=== PATIENT | female | born 1980 | race Caucasian/White ===

== ENCOUNTER → 2024-05-08 14:20 | Outpatient (REF) | payer SELFPAY | LOC: HWRAD 14:20 | DX: E04.9 Nontoxic goiter, unspecified (principal) | CPT/HCPCS: 76536 ==

== ENCOUNTER → 2024-07-03 08:02 | Outpatient (REF) | payer SELFPAY ==
[2024-07-03 10:09] LABS: HDL Cholesterol 82 mg/dl; LDL Cholesterol, Calculated 204 mg/dl; Total Cholesterol 305 mg/dl (50-199); Triglyceride 96 mg/dl (10-149); Very Low Density Lipoprotein 19 mg/dl (0-30)
[2024-07-03 10:18] LABS: Free T4 0.41 ng/dl (0.78-2.19)
[2024-07-03 11:02] LABS: Glycohemoglobin (HgbA1c) 5.7 % (4.0-5.6)
[2024-07-04 22:16] LABS: Thyroid Peroxidase Ab (TPO) 121.8 IU/mL (0.0-9.0)
== END ==
LOC: HWLAB 08:02
PROVIDERS: FAMILY PHYSICIAN Internal Medicine
DX: E05.90 Thyrotoxicosis, unspecified without thyrotoxic crisis or storm (principal)
CPT/HCPCS: 36415; 80061; 83036; 84439; 84443; 86376

== ENCOUNTER → 2024-08-31 08:48 | Outpatient (REF) | payer SELFPAY ==
[2024-08-31 11:29] LABS: HDL Cholesterol 62 mg/dl; LDL Cholesterol, Calculated 122 mg/dl; Total Cholesterol 216 mg/dl (50-199); Triglyceride 162 mg/dl (10-149); Very Low Density Lipoprotein 32 mg/dl (0-30)
[2024-08-31 11:38] LABS: Free T4 1.26 ng/dl (0.78-2.19)
[2024-08-31 11:52] LABS: TSH 1.81 uIU/ml (0.47-4.68)
== END ==
LOC: HWLAB 08:48
PROVIDERS: ATTENDING PHYSICIAN Internal Medicine Endocrinology, Diabetes & Metabolism; FAMILY PHYSICIAN Internal Medicine
DX: E03.9 Hypothyroidism, unspecified (principal)
CPT/HCPCS: 36415; 80061; 84439; 84443

== ENCOUNTER → 2024-09-28 07:47 | Outpatient (REF) | payer OTHER, SELFPAY ==
[2024-09-28 10:11] LABS: Prolactin 54.4 ng/ml (3.0-18.6)
== END ==
LOC: HWLAB 07:47
PROVIDERS: FAMILY PHYSICIAN Internal Medicine
DX: R79.89 Other specified abnormal findings of blood chemistry (principal)
CPT/HCPCS: 36415; 84146

== ENCOUNTER → 2025-01-21 08:25 | Outpatient (REF) | payer OTHER, SELFPAY ==
[2025-01-21 10:35] LABS: Free T4 1.16 ng/dl (0.78-2.19)
[2025-01-21 10:49] LABS: TSH 2.77 uIU/ml (0.47-4.68)
[2025-01-21 10:50] LABS: HDL Cholesterol 66 mg/dl; LDL Cholesterol, Calculated 135 mg/dl; Total Cholesterol 227 mg/dl (50-199); Triglyceride 132 mg/dl (10-149); Very Low Density Lipoprotein 26 mg/dl (0-30)
== END ==
LOC: HWLAB 08:25
PROVIDERS: ATTENDING PHYSICIAN Internal Medicine Endocrinology, Diabetes & Metabolism; FAMILY PHYSICIAN Internal Medicine
DX: E06.1 Subacute thyroiditis (principal); E04.2 Nontoxic multinodular goiter; E78.5 Hyperlipidemia, unspecified
CPT/HCPCS: 36415; 80061; 84439; 84443

== ENCOUNTER → 2025-04-10 08:13 | Outpatient (REF) | payer SELFPAY ==
[2025-04-10 12:42] LABS: HDL Cholesterol 62 mg/dl; LDL Cholesterol, Calculated 139 mg/dl; Very Low Density Lipoprotein 37 mg/dl (0-30)
[2025-04-10 13:13] LABS: TSH 4.13 uIU/ml (0.47-4.68)
== END ==
LOC: HWLAB 08:13
PROVIDERS: ATTENDING PHYSICIAN Internal Medicine Endocrinology, Diabetes & Metabolism; FAMILY PHYSICIAN Internal Medicine
DX: E06.1 Subacute thyroiditis (principal); E04.2 Nontoxic multinodular goiter; E78.5 Hyperlipidemia, unspecified; E03.9 Hypothyroidism, unspecified
CPT/HCPCS: 36415; 80061; 84439; 84443

== ENCOUNTER 2025-04-29 12:23 | Emergency (ER) | payer SELFPAY ==
[2025-04-29 12:25] VITALS: BP 182/109
--- NOTE | 2025-04-29 13:27 | ED.GENMED ---
History of Present Illness
General
Chief Complaint: DVT/Possible Blood Clot
Source: patient
Exam Limitations: none
Time Seen by Provider: 04/29/25 13:04
Nursing documentation reviewed up to this point in time: agreed with
History of Present Illness
History of Present Illness:
45-year-old female with Debby history of hypothyroidism presenting to the emergency department today with concerns of a right posterior knee discomfort that has been present over the past 4 weeks. Tried exercise 1 week ago and seem to have
worsening discomfort. Has noticed some vague swelling. Has been taking meloxicam without relief. She claims that she additionally had an episode of chest pain yesterday that was very short-lived and also checked her blood pressure which was
elevated at the time. She does not take any blood pressure medications at baseline. Denies any significant shortness of breath any recent trauma surgery immobilization, estrogen product usage. No history of blood clots.
Review of Systems
Review of Systems
Allergies reviewed?: Yes
All Other Systems: ROS reviewed and negative except as documented in HPI and ROS
Phy Exam
Physical Exam
Physical Exam:
GENERAL: Alert , in no apparent distress
EYE: pupils equal and reactive
NECK: Supple, no significant adenopathy.
ENT: o/p clr, mmm.
CARDIAC: Regular rate and rhythm .
LUNGS: Clear breath sounds bilaterally, no acute respiratory distress, no wheezes/rales/rhonchi
ABDOMEN: Soft, without focal tenderness, no r/g, no cvat
NEUROLOGICAL: Alert and oriented, no focal neuro deficits
SKIN: Warm and dry, skin intact.
MUSCULOSKELETAL: No edema, well perfused.
PSYCH: Normal and appropriate interaction.
Course
Orders/Labs/Results
Orders:
Orders
04/29/25 12:31
US Periph Venous LOWER Ext RT Urgent
Comment:
Reason For Exam: pain to posterior knee/leg
04/29/25 14:16
EKG [Electrocardiogram (*1)] Urgent
Reason for Study: Chest Pain
EKG- Treatment ONCE
Vital Signs
Initial and Last Documented VS:
Initial Vital Signs
Temp Pulse Resp BP Pulse Ox
98.3 F 103 18 182/109 98
04/29/25 12:25 04/29/25 12:25 04/29/25 12:04/29/25 12:04/29/25 12:25
Last Documented Vital Signs
Temp Pulse Resp BP Pulse Ox
98.3 F 103 18 146/81 98
04/29/25 12:04/29/25 12:25 04/29/25 12:04/29/25 14:23 04/29/25 13:29
MDM/Problems Addressed
MDM/Problems Addressed:
45-year-old female presenting with concerns of discomfort to the posterior right knee over the past 4 weeks or so. Also notes her blood pressure was elevated yesterday when checking after having a brief episode of chest discomfort. On arrival here
blood pressure is elevated to 180s over 100s. Heart rates 100. Blood pressure repeated without any specific treatment in the 140s over 80s. Heart rate improved into the 70s. Patient no distress here. Ultrasound negative for blood clot. Patient
with likely soft tissue injury. Plan for symptomatic treatment otherwise stable for outpatient follow-up. Return precautions given.
*Pulse Oximetry
SaO2: 98
Oxygen Mode of Delivery: Room air
Patient hypoxic: no (98)
*Critical Care Note
Total Time (30-74mins, 75-104mins- exclusive of procedures): Not Applicable
ED Attending Note
-
Portions of this chart may have been created with voice recognition software.� Occasional wrong word or��sound alike� substitutions may have occurred due to the inherent limitations of voice recognition software.
Discharge Plan
Departure
Patient Disposition: Home (Routine Discharge)
Date of Disposition: 04/29/25
Time of Disposition: 14:34
Patient with high blood pressure during this ER visit?: Yes
Condition: Good
Covid-19: Not Applicable
Discharge Problem:
Knee sprain
Instructions: Knee Sprain ED, BLOOD PRESSURE
Referrals:
NONE,* [Family Provider, Internal Medicine]
Eduard Lacey MD [Active, Orthopedics] - Follow up in 5-7 days
Activity Restrictions/Additional Instructions:
You came to the emergency department today with concerns of knee discomfort. Here you had a normal ultrasound. Please follow closely with orthopedics for ongoing symptoms in the meantime please rest ice compress and elevate. Return for any
worsening, new or concerning symptoms.
Interventions
Interventions:
*Risk Screen - Suicide Last Done: 04/29/25 12:25
*General Assessment Last Done: 04/29/25 14:18
*Neglect/Abuse Screening Last Done: 04/29/25 14:18
*ED- Fall Risk Assessment Last Done: 04/29/25 14:18
*ED COVID-19 Vaccine History Last Done: 04/29/25 14:18
Discharge Date and Time
Print Language: ARABIC
[2025-04-29 14:21] VITALS: BMI 41.2
[2025-04-29 14:23] VITALS: BP 146/81
== END 2025-04-29 14:52 | disposition home or self-care (01) ==
LOC: EMR 12:23
PROVIDERS: EMERGENCY PHYSICIAN Emergency Medicine
DX: S83.91XA Sprain of unspecified site of right knee, initial encounter (principal); X58.XXXA Exposure to other specified factors, initial encounter; R07.9 Chest pain, unspecified; R22.41 Localized swelling, mass and lump, right lower limb; E03.9 Hypothyroidism, unspecified
CPT/HCPCS: 99284; 93005; 93971

== ENCOUNTER → 2025-10-08 08:20 | Outpatient (REF) | payer SELFPAY ==
[2025-10-08 09:27] LABS: Hematocrit 41.2 % (37.0-47.0); Hemoglobin 13.5 g/dL (12.0-16.0); Mean Corp Hgb Conc. 32.8 g/dL (33.0-37.0); Mean Corpuscular Volume 81.3 fL (81.0-99.0); Nucleated Red Blood Cells % 0 %; Platelet Count 382 10^3/uL (130-400); Red Cell Dist. Width 13.2 % (11.5-14.5)
[2025-10-08 09:56] LABS: Glycohemoglobin (HgbA1c) 5.5 % (4.0-5.9)
[2025-10-08 10:06] LABS: ALT (SGPT) 16 U/L (0-35); AST (SGOT) 19 U/L (14-36); Albumin 4.4 g/dl (3.5-5.0); Alkaline Phosphatase 55 U/L (38-126); Blood Urea Nitrogen 11 mg/dl (7-17); Calcium 9.4 mg/dl (8.4-10.2); Carbon Dioxide 25 mmol/L (22-30); Chloride 107 mmol/L (98-107); Glucose 97 mg/dl (70-99); HDL Cholesterol 64 mg/dl; LDL Cholesterol, Calculated 139 mg/dl; Potassium 4.3 mmol/L (3.5-5.1); Sodium 137 mmol/L (135-145); Total Protein 7.0 g/dl (6.3-8.2); Very Low Density Lipoprotein 19 mg/dl (0-30); eGFR > 60.00
[2025-10-08 10:20] LABS: FSH 13.7 mIU/ml
[2025-10-08 10:53] LABS: TSH 1.12 uIU/ml (0.47-4.68)
== END ==
LOC: HWLAB 08:20
PROVIDERS: ATTENDING PHYSICIAN Internal Medicine Endocrinology, Diabetes & Metabolism; FAMILY PHYSICIAN Internal Medicine
DX: E03.9 Hypothyroidism, unspecified (principal); E04.2 Nontoxic multinodular goiter; E78.5 Hyperlipidemia, unspecified; E22.1 Hyperprolactinemia
CPT/HCPCS: 36415; 80053; 80061; 82670; 83001; 83002; 83036; 84144; 84439; 84443; 85025